=== PATIENT | female | born 1985 | race Caucasian/White ===

== ENCOUNTER 2018-10-14 17:42 | Inpatient (IN) | payer OTHER ==
[2018-10-14 18:39] LABS: RUPTURE OF MEMBRANES PLUS POSITIVE (NEGATIVE)
[2018-10-14] MEDS ORDERED: fentaNYL 100 MCG/2 ML VIAL IVP PRN (18:50)
[2018-10-14] MEDS ORDERED: OXYTOCIN/SODIUM CHLORIDE 500 ML IV PRN (18:50)
[2018-10-14] MEDS ORDERED: ONDANSETRON 4 MG/2 ML VIAL IVP PRN (18:50)
[2018-10-14] MEDS ORDERED: SODIUM CHLORIDE FLUSH 0.9% 10 ML SYRINGE IVP PRN (18:50)
[2018-10-14] MEDS ORDERED: miSOPROStol 200 MCG TABLET PR ONE (18:50)
[2018-10-14] MEDS ORDERED: PENICILLIN G POTASSIUM 5,000,000 UNIT in SODIUM CHLORIDE 0.9% MINIBAG 100 ML IV ONE (19:30)
[2018-10-14 19:55] LABS: BASOPHILS % (AUTO) 0.1 %; EOSINOPHILS # (AUTO) 0.1 10^3/uL (0.0-0.7); HGB - HEMOGLOBIN 13.1 g/dL (12.0-16.0); LYMPHOCYTES # (AUTO) 1.9 10^3/uL (1.5-3.5); LYMPHOCYTES % (AUTO) 16.1 %; MEAN CORPUSCULAR HEMOGLOBIN 32.4 pg (27.0-31.0); MEAN CORPUSCULAR HGB CONC 35.2 g/dL (32.0-36.0); MEAN CORPUSCULAR VOLUME 92.1 fL (81.0-99.0); MEAN PLATELET VOLUME 8.6 fL (7.9-10.8); MONOCYTES # (AUTO) 0.8 10^3/uL (0.0-1.0); MONOCYTES % (AUTO) 6.5 %; NEUTROPHILS # (AUTO) 9.1 10^3/uL (1.5-6.6); NEUTROPHILS % (AUTO) 76.3 %; PLT - PLATELET COUNT 233 10^3/uL (130-450); RED BLOOD COUNT 4.04 10^6/uL (4.20-5.40); WHITE BLOOD COUNT 11.9 x10^3/uL (4.8-10.8)
[2018-10-14] MEDS: CALCIUM CARBONATE CHEW 500 MG TABLET PO SCH (20:00)
[2018-10-14] MEDS: LACTATED RINGERS 1,000 ML IV SCH (20:03)
[2018-10-14] MEDS: OXYTOCIN/SODIUM CHLORIDE 500 ML IV SCH (20:30)
--- NOTE | 2018-10-14 23:06 | HISTORY & PHYSICAL EXAMINATION ---
Admit History - Visit Reason Visit Reason: Membranes rupture - : 1 Parity: 0 Care: positive: [facility] Risk/History: positive: None Complications This : positive: None Smoking Status: Never smoker - Mother's Labs Mother's Blood Type: positive: A Mother's RH: positive: Positive GBS: positive: Group B Strep Positive Rubella Status: positive: Immune - Other Maternal History Other Maternal History: HPI: had wet underwear when she went to urinate at 16:30. Was clear. Has been leaking since. Prior to 16:30 her previous void had been at 14:00. ROS: no VB. No UC. Good FM. No fever. Having some nasal congestion and cough--is recovering from viral URI from last week PMH: recurrent UTI in early , received macrobid suppression until 38w PSH: neg Allergies: NKDA Meds: PNV, tums, colace SH: no t/e/d. 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 Supportive partner is here. 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 Care at [facility]--they are on divert. HALEY: 10/16/18 by 9w US per [employer] ABO Rh: A+, antibody neg STI labs: neg gc/ct, HIV neg, Hep C neg, Hep B neg, Syphilis neg Immunity screen: immune to rubella and varicella Carrier screen: CF results are not clear from chart Genetic screen: normal quad screen UA: normal Pap: result not clear from records. I believe it reads normal pap, +HR HPV, neg 16/18. 1h: 113 CBC: 37 in 06/2018 Anatomy: no anatomy scan in records Flu vax: s/p Tdap: s/p 36w US: EFW 64%ile projected to be 8#6oz at 40w. 10/09/18 SVE /-3/post/medium. Membranes were swept then. O: AVSS Alert, smiling between contractions, NAD Abd soft, nt/nd Fundus nontender EFW 7.5-8.5# Vertex by SVE. 90/-1 NST category 1 [place] not picking up well. One contraction while I was in the room--palpated strong. A/P: [id number] G1 at 39w5d by 9w US with SROM clear around 16:30. --Augmenting with pitocin due to lack of UC on admission; strong UC palpated, stoic patient, will adjust toco and assess UC --GBS + getting PCN prophylaxis --Reassuring wellbeing. Vertex. EFW 7.5-8.5#. No anatomy scan on record but it was done. --Uncomplicated except for recurrent UTI. -- issues: none identified. Rh+, , RI, s/p Tdap and flu vax. --Anticipate . Discussed pain control options and what to expect at delivery. Meds/Allgy - Allergies Allergies/Adverse Reactions: Allergies Allergy/AdvReac Type Severity Reaction Status Date / Time No Known Drug Allergies Allergy Verified 10/14/18 19:24 Physical - Abdominal Exam Vital Signs: Temp Pulse Resp BP Pulse Ox 98.1 F 74 18 122/78 99 10/14/18 17:55 10/14/18 17:55 10/14/18 17:55 10/14/18 17:55 10/14/18 17:55
[2018-10-15] MEDS ORDERED: fent/BUPIV 2 MCG/0.125% 250 ML EP ONE (00:27)
[2018-10-15] MEDS: LACTATED RINGERS 1,000 ML IV SCH ×3 (00:50→14:26)
[2018-10-15] MEDS ORDERED: NALBUPHINE 10 MG/ML AMP IVP PRN (01:15)
[2018-10-15] MEDS ORDERED: ONDANSETRON 4 MG/2 ML VIAL IVP PRN (01:15)
[2018-10-15] MEDS ORDERED: fent/BUPIV 2 MCG/0.125% 250 ML EP PRN (01:15)
[2018-10-15] MEDS ORDERED: diphenhydrAMINE INJ 50 MG/ML VIAL IVP PRN (01:15)
--- NOTE | 2018-10-15 01:17 | ANESTHESIA ---
Pre-Anesthesia VS, & Labs - Diagnosis term labor, IUP - Procedure TONI Vital Signs: Temp Pulse Resp BP Pulse Ox 36.7 C 74 18 122/78 99 10/14/18 17:55 10/14/18 17:55 10/14/18 17:55 10/14/18 17:55 10/14/18 17:55 Height 5 ft 5 in Weight (kg) 97.069 kg - NPO Last Fluid Intake: t/o day/noc Last Food Intake: 1999 - Is Patient ?: Yes - Lab Results Current Lab Results: Laboratory Tests 10/14/18 19:25: Blood Type A POSITIVE, Antibody Screen NEGATIVE 10/14/18 19:25: WBC 11.9 H, RBC 4.04 L, Hgb 13.1, Hct 37.2, MCV 92.1, MCH 32.4 H , MCHC 35.2, RDW 13.0, Plt Count 233, MPV 8.6, Neut # (Auto) 9.1 H, Lymph # (Auto) 1.9, Nelson # (Auto) 0.8, Eos # (Auto) 0.1, Baso # (Auto) 0.0, Absolute Nucleated RBC 0.01, Nucleated RBC % 0.1 Lab results reviewed: Yes Fish Bones: 10/14/18 19:25 Home Medications and Allergies Active Medications Acetaminophen (Tylenol) 650 mg PO Q6H PRN PRN Reason: Pain or Fever Calcium Carbonate/Glycine (Tums) 500 mg PO BID [facility] Last Admin: 10/14/18 20:00 Dose: 500 mg Fentanyl (Fentanyl) 50 mcg IVP Q1H PRN PRN Reason: PAIN Lactated Ringer's (Lr) 1,000 mls @ 100 mls/hr IV .Q10H [facility] Last Admin: 10/14/18 20:03 Dose: 100 mls/hr Oxytocin/Sodium Chloride (Pitocin/Sodium Chloride) 500 mls @ 999 mls/hr IV PRN PRN; Protocol PRN Reason: POST- HEMORR PREVENTION Penicillin G Potassium 2,500, (000 unit/ Sodium Chloride) 100 mls @ 200 mls/hr IV Q4H [facility] Last Admin: 10/15/18 00:00 Dose: 200 mls/hr Oxytocin/Sodium Chloride (Pitocin/Sodium Chloride) 500 mls @ 1 mls/hr IV TITR S CH; Protocol Last Titration: 10/15/18 00:03 Dose: 4 milliunit/min, 4 mls/hr Ondansetron HCl (Zofran Inj) 4 mg IVP Q4HR PRN PRN Reason: Nausea / Vomiting Last Admin: 10/15/18 00:07 Dose: 4 mg Sodium Chloride (Normal Saline Flush 0.9%) 10 ml IVP 0100,0900,1700 BJ Sodium Chloride (Normal Saline Flush 0.9%) 10 ml IVP PRN PRN PRN Reason: NEEDED PER PROVIDER ORDERS Allergies/Adverse Reactions: Allergies Allergy/AdvReac Type Severity Reaction Status Date / Time No Known Drug Allergies Allergy Verified 10/14/18 19:24 Anes History & Medical History - Anesthetic History Anesthesia Complications: reports: No previous complications Family history of Anesthesia Complications: Denies Family history of Malignant Hyperthermia: Denies - Medical History Smoking Status: Never smoker - Obstetrical History : 1 Parity: 0 Events: positive: None Complications: positive: None Exam General: Alert, Oriented x3, Cooperative Dental: WNL Mouth Openin Fingerbreadth Neck Mobility: Normal Mallampati classification: I Thyromental Distance: less than 4 cm Respiratory: No respiratory distress Cardiovascular: Regular rate Neurological: Normal speech Mental/Cognitive Status: Alert/Oriented X3 Cognitive Status: Within normal limits Plan Anesthesia Type: Epidural Consent for Procedure(s) Verified and Reviewed: Yes Code Status: Attempt Resuscitation ASA classification: 2-Mild systemic disease Is this case an emergency?: No
[2018-10-15] MEDS: PENICILLIN G POTASSIUM 2,500,000 UNIT in SODIUM CHLORIDE 0.9% 100ML 100 ML IV SCH ×6 (05:00→17:38)
[2018-10-15] MEDS: SODIUM CHLORIDE FLUSH 0.9% 10 ML SYRINGE IVP SCH ×3 (07:24→15:45)
--- NOTE | 2018-10-15 08:23 | PROVIDER PROGRESS NOTE ---
Labor Progress Note - Uterine Monitoring Uterine Monitoring Mode: positive: External toco Contraction Frequency (min/apart): 2 Uterine Resting Tone: positive: Soft - Monitoring Monitor Mode: positive: External ultrasound Heart Rate Variability: positive: Moderate (6-25 bmp) Accelerations: positive: Present, 15x15 Decelerations: positive: None Strip Review: positive: Category I - Vaginal Exam Dilation (in cm): 8-9 Effacement (%): 90 Station: -2 - Labor Progress Note Labor Progress Note/Additional Text: S: comfortable with epidural O: AVSS, NAD A/P: 33yo G1 at 39w6d with active labor, SROM clear since 16:30 yesterday. --RN reported SVE of ant lip--I get a SVE of 9cm during a UC and 8cm when not. --Not on pitocin anymore, UC q2min. --Plan to palpate UC more consistently. If moderate then start pitocin. Otherwise recheck SVE in 1h and if unchanged then will place IUPC --GBS + on PCN -- well being reassuring
[2018-10-15] MEDS ORDERED: LIDOCAINE-MPF 2% 5 ML VIAL IM ONE (12:00)
--- NOTE | 2018-10-15 12:33 | PROVIDER PROGRESS NOTE ---
Labor Progress Note - Uterine Monitoring Uterine Monitoring Mode: positive: IUPC (Strong. Didn't figure out [place] u nits) Contraction Frequency (min/apart): 2-4 Contraction Intensity: positive: Strong Uterine Resting Tone: positive: Soft - Monitoring Monitor Mode: positive: External ultrasound Heart Rate Baseline: 110 Heart Rate Variability: positive: Moderate (6-25 bmp) Accelerations: positive: Present, 15x15 Strip Review: positive: Category I - Vaginal Exam Dilation (in cm): 10 Effacement (%): 100 Station: 2 - Labor Progress Note Labor Progress Note/Additional Text: Anticipate delivery.
[2018-10-15] MEDS ORDERED: LIDOCAINE-MPF 1% 30 ML VIAL ONE (12:53)
[2018-10-15] MEDS ORDERED: METHYLERGONOVINE 0.2 MG/ML AMP ONE (13:00)
[2018-10-15] MEDS ORDERED: oxyCODONE 5 MG TABLET PO PRN (13:30)
[2018-10-15] MEDS ORDERED: HYDROCORTISONE 1% CREAM 28 GM TUBE PR PRN (13:30)
[2018-10-15] MEDS ORDERED: diphenhydrAMINE 25 MG CAPSULE PO PRN (13:30)
[2018-10-15] MEDS ORDERED: WITCH HAZEL/GLYCERIN 1 EACH MED..PAD TOP PRN (13:30)
--- NOTE | 2018-10-15 13:39 | DELIVERY NOTE ---
Delivery Note - Labor Labor: positive: Spontaneous - Delivery Method Delivery Method: positive: Spontaneous vaginal delivery - Presentation Presentation: positive: Vertex, OA - occiput anterior - Nuchal Cord Nuchal Cord: positive: None - Anesthetic Anesthetic Type: - Amniotic Fluid Description Amniotic Fluid Description: positive: Clear - Episiotomy Type Episiotomy Type: positive: None - Laceration Laceration: positive: 1st degree, Labial, Other (clitoral) - Suture Suture Type: positive: Vicryl Suture Size: positive: 3-0 - Delivery Outcome Delivery Outcome: positive: Livebirth (Male apgars 7/9) - [place] : positive: Suctioned, Bulb syringe, Stimulated, Other (clitoral) sex: positive: Male - Cord Cord: positive: 3 vessels - Placenta Placenta: positive: Intact, Spontaneous - Estimated Blood Loss Estimated Blood Loss (in cc): 600 - Post Delivery Events Post Delivery Events: positive: No post delivery events - Delivery Comments (Free Text/Narrative) Delivery Comments (Free Text/Narrative): Contractions were spacing out and insufficient. IUPC placed and pit brought to 5. Excellent pattern. Exam st 1222 showed Head C/C/+2. Pt Pushed and head brought to . Delivery setup and at 1242 Live male 7lb 12oz delivered OA which rotated to DILMA. Nucal cord noted and baby delivered thru the cord. Possible shoulder dystocia anticipated and so Bhakta procedure initiated with easy delivery of the shoulders. Placenta followed at 1252. inspected adn noted to be complete. Left labial laceration noted and repaired with 3-0 vicril. clitoral laceration repared with 3-0 vicril. both mother and baby tolerated delivery well.
[2018-10-15] MEDS: CALCIUM CARBONATE CHEW 500 MG TABLET PO SCH (13:56)
[2018-10-15] MEDS: IBUPROFEN 600 MG TABLET PO SCH ×2 (14:21→20:12)
[2018-10-15] MEDS: SIMETHICONE CHEW 80 MG TABLET PO SCH (16:29)
[2018-10-15] MEDS: DOCUSATE SODIUM 100 MG CAPSULE PO SCH (20:12)
[2018-10-15] MEDS: ACETAMINOPHEN 325 MG TABLET PO PRN (22:52)
[2018-10-16] MEDS: IBUPROFEN 600 MG TABLET PO SCH ×4 (02:14→20:31)
[2018-10-16 05:56] LABS: BASOPHILS % (AUTO) 0.1 %; EOSINOPHILS # (AUTO) 0.2 10^3/uL (0.0-0.7); EOSINOPHILS % (AUTO) 1.7 %; HGB - HEMOGLOBIN 9.4 g/dL (12.0-16.0); LYMPHOCYTES % (AUTO) 14.8 %; MEAN CORPUSCULAR HEMOGLOBIN 31.9 pg (27.0-31.0); MEAN CORPUSCULAR HGB CONC 33.5 g/dL (32.0-36.0); MEAN CORPUSCULAR VOLUME 95.2 fL (81.0-99.0); MEAN PLATELET VOLUME 8.2 fL (7.9-10.8); MONOCYTES # (AUTO) 0.9 10^3/uL (0.0-1.0); MONOCYTES % (AUTO) 6.6 %; NEUTROPHILS # (AUTO) 10.4 10^3/uL (1.5-6.6); NEUTROPHILS % (AUTO) 76.8 %; PLT - PLATELET COUNT 172 10^3/uL (130-450); RED BLOOD COUNT 2.95 10^6/uL (4.20-5.40); RED CELL DISTRIBUTION WIDTH 13.3 % (12.0-15.0); WHITE BLOOD COUNT 13.5 x10^3/uL (4.8-10.8)
--- NOTE | 2018-10-16 07:47 | PROVIDER PROGRESS NOTE ---
Subjective - Prog Note Date Prog Note Date: 10/16/18 Prog Note Time: 07:45 - Subjective Pt reports feeling: Improved (Pain 07/18. breast feeding) Objective - Vital Signs/Intake & Output Reviewed Vital Signs: Yes Vital Signs: Vital Signs x48h Temp Pulse Resp BP Pulse Ox 10/16/18 07:14 36.7 C 69 16 127/77 95 10/16/18 04:00 36.8 C 66 16 105/68 98 10/16/18 00:38 36.7 C 70 16 113/70 99 Intake & Output: Intake & Output 10/13/18 10/14/18 10/15/18 10/16/18 23:59 23:59 23:59 23:59 Intake Total 330.614 2146.950 Output Total 2650 Balance 982.837 6680.950 - Objective General Appearance: positive: No acute distress Respiratory: positive: Chest non-tender, No respiratory distress, Breath sounds nml Cardiovascular: positive: Regular rate & rhythm, No murmur, No gallop Abdomen: positive: Non-tender, No organomegaly, Nml bowel sounds Extremities: negative: Calf tenderness, Richard's sign/cords - Lab Results Fish Bones: 10/16/18 05:35 Other Labs: Lab Results x24hrs 10/16/18 Range/Units 05:35 WBC 13.5 H (4.8-10.8) x10^3/uL RBC 2.95 L (4.20-5.40) 10^6/uL Hgb 9.4 L (12.0-16.0) g/dL Hct 28.1 L (37.0-47.0) % MCV 95.2 (81.0-99.0) fL MCH 31.9 H (27.0-31.0) pg MCHC 33.5 (32.0-36.0) g/dL RDW 13.3 (12.0-15.0) % Plt Count 172 (130-450) 10^3/uL MPV 8.2 (7.9-10.8) fL Neut # (Auto) 10.4 H (1.5-6.6) 10^3/uL Lymph # (Auto) 2.0 (1.5-3.5) 10^3/uL [place] # (Auto) 0.9 (0.0-1.0) 10^3/uL Eos # (Auto) 0.2 (0.0-0.7) 10^3/uL Baso # (Auto) 0.0 (0.0-0.1) 10^3/uL Absolute Nucleated RBC 0.00 x10^3/uL Nucleated RBC % 0.0 /100WBC Assessment/Plan - Problem List (1) (spontaneous vaginal delivery) Impression: Progressing well. watch bleeding
[2018-10-16] MEDS: CALCIUM CARBONATE CHEW 500 MG TABLET PO SCH ×2 (07:55→10:25)
[2018-10-16] MEDS: OXYTOCIN/SODIUM CHLORIDE 500 ML IV SCH (07:55)
[2018-10-16] MEDS: SODIUM CHLORIDE FLUSH 0.9% 10 ML SYRINGE IVP SCH ×3 (07:55→18:23)
[2018-10-16] MEDS: LACTATED RINGERS 1,000 ML IV SCH ×3 (07:55→10:25)
[2018-10-16] MEDS: SIMETHICONE CHEW 80 MG TABLET PO SCH ×4 (07:56→20:31)
[2018-10-16] MEDS: DOCUSATE SODIUM 100 MG CAPSULE PO SCH ×2 (08:04→20:31)
[2018-10-17] MEDS: CALCIUM CARBONATE CHEW 500 MG TABLET PO SCH (04:52)
[2018-10-17] MEDS: IBUPROFEN 600 MG TABLET PO SCH ×2 (04:52→10:34)
[2018-10-17 08:29] VITALS: BP 110/76
--- NOTE | 2018-10-17 08:38 | PROVIDER PROGRESS NOTE ---
Subjective - Prog Note Date Prog Note Date: 10/17/18 Prog Note Time: 08:35 - Subjective Pt reports feeling: Improved (Pain 0/10. milk comming bleeing scant.) Objective - Vital Signs/Intake & Output Reviewed Vital Signs: Yes Vital Signs: Vital Signs x48h Temp Pulse Resp BP Pulse Ox 10/17/18 08:00 36.9 C 68 14 110/76 99 10/17/18 04:51 37.4 C 75 16 118/84 H 98 Intake & Output: Intake & Output 10/14/18 10/15/18 10/16/18 10/17/18 23:59 23:59 23:59 23:59 Intake Total 249.644 9186.950 Output Total 2650 Balance 179.998 9021.950 - Objective General Appearance: positive: No acute distress, Alert Abdomen: positive: Non-tender, No distention, Mass (U-3) - Lab Results Fish Bones: 10/16/18 05:35 Other Labs: Lab Results x24hrs 10/16/18 Range/Units 05:35 Blood Type Recheck A POSITIVE Assessment/Plan - Problem List (1) (spontaneous vaginal delivery) Impression: clitoral laceration left labial laceration. Anemia. Send home reviewed breast feeding contraception. wants nexplanon. RTC 1 week here than followup at [facility]. Discharge medication Motrin Colace.
[2018-10-17] MEDS: DOCUSATE SODIUM 100 MG CAPSULE PO SCH (08:40)
[2018-10-17] MEDS: SIMETHICONE CHEW 80 MG TABLET PO SCH (08:41)
--- NOTE | 2018-10-17 08:44 | Discharge Plan ---
Discharge Plan Disposition: 01 Home, Self Care Condition: Good Shower Restrictions: No Driving Restrictions: No Weight Bearing: Full Weight No Smoking: If you smoke, Please STOP! Call for help. Follow-up with: SABA FREDERICK [Primary Care Provider] -
[2018-10-17] MEDS: ACETAMINOPHEN 325 MG TABLET PO PRN (10:33)
--- NOTE | 2018-10-17 10:56 | Labor Flowsheet ---
Labor Flowsheet Datetime Report Generated by CPN: 10/17/2018 10:55 Datetime: 10/17/2018 08:05 VITAL SIGNS NBP Sys/Maye/Mean (mmHg): 110 : 76 : 83 Pulse: 70 LaborFlag: Labor Datetime: 10/16/2018 20:29 SpO2 (%): 100 Datetime: 10/15/2018 12:33 COMMUNICATION Communication: Provider at Bedside Provider Notified (Name): Giem Datetime: 10/15/2018 12:30 UTERINE ACTIVITY Monitor Mode: Internal Frequency (min): 1.5-2.5 Duration (sec): 60-80 Pattern: Normal: <= 5 Contractions in 10 Minutes Resting Tone IUP (mmHg): 20-30 Intensity IUP (mmHg): 80-100 ASSESSMENT A Monitor Mode: External US FHR Baseline Rate : 115 FHR Baseline Changes: No Baseline Change Variability: Moderate 6-25 bpm Accelerations: 15X15 Decelerations: None Category: Category I Datetime: 10/15/2018 12:22 VAGINAL EXAM Dilatation (cm): 10.0 Station: 2 Exam by: Giem Datetime: 10/15/2018 11:58 Stage of : Labor Datetime: 10/15/2018 11:54 Respirations: 16 Temperature (C): 36.4 Anesthesia Level Check: T9 Datetime: 10/15/2018 11:52 Monitor Interventions for FHR: Ultrasound Adjusted Datetime: 10/15/2018 11:51 PATIENT CARE Patient Position/Activity: Right Lateral Datetime: 10/15/2018 10:59 MEDICATIONS Pitocin (milliunits): Increased to @ 5 Datetime: 10/15/2018 10:44 Epidural Procedure Other: Redose Datetime: 10/15/2018 10:43 Anesthesia Comments: Aube @BS Datetime: 10/15/2018 10:30 Actions for Decelerations: Side to Side Datetime: 10/15/2018 10:04 Contraction Comments: IUPC zeroed Datetime: 10/15/2018 10:00 Moran Units (mmHg): 210 Datetime: 10/15/2018 09:50 Patient Care Comments: with peanut ball Datetime: 10/15/2018 09:00 Quality: Strong Resting Tone (Palpate): Relaxed Datetime: 10/15/2018 08:56 Monitor Interventions for UA: IUPC Inserted Datetime: 10/15/2018 08:33 Communication Comments: Providers @BS to introduce Giem to pt. Datetime: 10/15/2018 06:50 Vaginal Bleeding: None Cervix, Position: Anterior Vaginal Exam Comments: anterior lip Datetime: 10/15/2018 05:45 Comments: variables to 100's with return to baseline Datetime: 10/15/2018 05:15 Effacement (%): 100 Medication Comments: pit off due to decreased variability, frequency of contractions. Datetime: 10/15/2018 05:12 Hygiene: Kassi Care; Underpad Changed; Peripad Changed; Gown Changed Datetime: 10/15/2018 04:45 Temperature Route: Oral Datetime: 10/15/2018 02:43 Cervix, Consistency: Soft Datetime: 10/15/2018 02:34 I/O Interventions: Allred Cath Inserted Datetime: 10/15/2018 00:48 Epidural Procedure: Cath Placed Datetime: 10/15/2018 00:26 PROCEDURE TIME OUT Procedure Verify: Correct Patient Identity; Accurate Procedure Consent Form; Agreement on Procedure to be Done; Correct Patient Position ANESTHESIA Anesthesia Plans: Epidural Epidural Positioning: Sitting Datetime: 10/15/2018 00:07 Antiemetics/Antacids: Zofran (mg) @ (Annotations: 4) Datetime: 10/14/2018 23:30 Pitocin Checklist: At Least 1 Acceleration of 15 bpm x 15 Seconds in 30 Minutes or Adequate Variabi lity; No More than 1 Late Deceleration Occurred in Past 30 Minutes; No More than 2 Variable Decelerat ions > 60 Seconds in Duration and decreasing >60 bpm in 30 minutes; Uterus Palpates Soft between Cont ractions Datetime: 10/14/2018 20:04 Antibiotics: Start Antibiotics; Penicillin IV (Units) @ (Annotations: 5 million u)
--- NOTE | 2018-10-23 15:21 | DISCHARGE SUMMARY ---
Physician: Naveen Robles MD DATE OF ADMISSION: 10/14/2018 DATE OF DISCHARGE: 10/17/2018 ADMITTING DIAGNOSES 1. A 33-year-old G1, P0, 39.4 weeks. 2. Spontaneous rupture of membranes. 3. Group B strep positive. DISCHARGE DIAGNOSES 1. A 33-year-old G1, P0, 39.4 weeks. 2. Spontaneous rupture of membranes. 3. Group B strep positive. 4. Left labial laceration, as well as clitoral laceration. PROCEDURES 1. Pitocin augmentation. 2. Group B strep prophylaxis. 3. Epidural. 4. Intrauterine pressure catheter. 5. Spontaneous vaginal delivery. 6. Repair of clitoral, as well as left labial laceration. PRESENTING HISTORY: Patient is a 33-year-old G1, P0, 39.5 weeks by 9-week ultrasound, who received her care from [facility]. Her care was significant in that she had a UTI. The remainder of her care was unremarkable. She was noted to be group B strep positive. She was also noted to be A positive. LABORATORIES: Predelivery white count was 11.9, hemoglobin 13.1. Hematocrit was 34.7. Platelets were 233. Postdelivery white count increased to 13.5, hemoglobin fell to 9.4, hematocrit 28.1, and platelets were 172. HOSPITAL COURSE: The patient was admitted, and because of lack of labor and/or spontaneous rupture of membranes Pitocin was initiated. She developed some tachysystoles, so her Pitocin was turned off and her contractions waned dramatically. For this reason, an IUPC was placed, and she was reinitiated on Pitocin. She was rechecked at 12:22; at which time she was noted to be complete, complete, +2. She brought the head down quite easily with pushing and at 12:42 she delivered a live male infant weighing 7 pounds 12 ounces at occiput anterior. A nuchal cord was noted, and because of its tightness, it was decided to deliver the baby through the cord. There was some hesitancy at delivering of the shoulders, so Mayuri maneuvers were initiated, and the shoulders delivered quite easily after that. Her placenta followed at 12:52, was inspected, and noted to be intact. She was noted to have a left labial laceration, as well as a clitoral laceration. These were both repaired with 3-0 Vicryl. Both mother and tolerated delivery well. Her course was unremarkable. Her diet was advanced. She utilized local pain measures. She was discharged to home on 10/17/2018, with instructions to follow up in 1 week. DISCHARGE MEDICATIONS 1. Motrin. 2. Colace. TD: 10/23/2018 14:36 [facility]
== END 2018-10-17 10:40 | disposition home or self-care (01) | DRG 768 ==
LOC: WFO 17:42 → FBP 17:44 → WFO 18:49 → FBP 18:50
PROVIDERS: ADMIT Obstetrics & Gynecology; ATTEND Obstetrics & Gynecology
PROC: 10E0XZZ Delivery of Products of Conception, External Approach (ICD-10-PCS; principal; 2018-10-15)
PROC: 0UQJXZZ Repair Clitoris, External Approach (ICD-10-PCS; 2018-10-15)
PROC: 0HQ9XZZ Repair Perineum Skin, External Approach (ICD-10-PCS; 2018-10-15)
DX: O99.820 Streptococcus B carrier state complicating pregnancy (principal); Z37.0 Single live birth; O66.0 Obstructed labor due to shoulder dystocia; O69.1XX0 Labor and delivery complicated by cord around neck, with compression, not applicable or unspecified; O70.0 First degree perineal laceration during delivery; O71.89 Other specified obstetric trauma; Z3A.39 39 weeks gestation of pregnancy
CPT/HCPCS: 36415; 84112; 85025; 86850; 86900; 86901; 99213; A9270; J7120

== ENCOUNTER 2019-03-28 12:08 | Outpatient (CLI) | payer OTHER ==
[2019-03-28] MEDS ORDERED: BUFFERED LIDOCAINE 10 ML SYRINGE ONE (12:27)
[2019-03-28] MEDS ORDERED: IOTHALAMATE MEGLUMINE 50 ML VIAL ONE (12:28)
[2019-03-28] MEDS ORDERED: GADOPENTETATE DIMEGLUMINE 5 ML VIAL IVP ONE ×2 (12:28→13:11)
[2019-03-28] MEDS ORDERED: BUFFERED LIDOCAINE 10 ML SYRINGE IU ONE (13:11)
[2019-03-28] MEDS ORDERED: IOTHALAMATE MEGLUMINE 50 ML VIAL IVP ONE (13:11)
--- NOTE | 2019-03-28 14:50 | XRAY Report ---
Reason: RT WRIST PAIN Procedure Date: 03/28/2019 Accession Number: [id number] / [id number] Procedure: FL - Arthrogram Needle Placement CPT Code: FULL RESULT: EXAM: RIGHT Wrist Arthrographic Injection with Fluoroscopic Guidance EXAM DATE: 03/28/2019 01:15 PM. CLINICAL HISTORY: RT WRIST PAIN. COMPARISON: ARTHROGRAM WRIST RT 03/28/2019 1:25 PM. TECHNIQUE: The risks, benefits, and alternatives of the procedure were discussed with the patient. All questions were answered. Written and verbal consent were obtained. The right radiocarpal joint was marked under fluoroscopy and prepped and draped in a sterile manner. Local anesthesia was performed with 1% lidocaine. A 25-gauge needle was then inserted into the radiocarpal joint. 3 mL of a solution containing 25% 1% lidocaine, 25% iodinated contrast, and a 1:200 dilution of gadolinium contrast in sterile saline was then injected. The needle was removed without immediate complication. Other: None. Fluoroscopy Time: 1 minute 12 seconds. Number of Images: 4. FINDINGS: Bones and joints: No fracture or subluxation. Injection: Fluoroscopic images demonstrate needle placement and contrast in the right radiocarpal joint. No contrast extravasation outside of the radiocarpal joint. IMPRESSION: Successful fluoroscopically guided arthrographic injection of the right wrist. RADIA
--- NOTE | 2019-03-29 09:26 | MRI Report ---
Reason: RT WRIST PAIN Procedure Date: 03/28/2019 Accession Number: [id number] / [id number] Procedure: MRI - Arthrogram Wrist RT CPT Code: FULL RESULT: EXAM: RIGHT WRIST MRI ARTHROGRAM WITH CONTRAST EXAM DATE: 03/28/2019 01:50 PM. CLINICAL HISTORY: Right wrist pain. COMPARISON: None. TECHNIQUE: Multiplanar, multisequence T1-weighted and fluid-sensitive sequences of the wrist after an arthrographic injection of dilute gadolinium, dictated under a separate exam. Other: None. FINDINGS: Bones: No fractures or subluxations. No marrow edema. No bone lesions. Cartilage: The articular cartilage is unremarkable. The triangular fibrocartilage has no full-thickness tears in the proximal to distal direction. However, there does appear to be transverse tearing through the cartilaginous structure as visualized on series 901, image 31. Ligaments: The scapholunate and lunotriquetral ligaments are intact. The visualized other intrinsic, extrinsic and collateral ligaments are unremarkable. Tendons: Multifocal longitudinal split tearing is demonstrated of the abductor pollicis longus and there is some fluid within its tendon sheath (series 501, image 15). The other visualized flexor and extensor tendons are unremarkable. Musculature: No edema or fatty atrophy. Other: The contents of the carpal tunnel, including the median nerve, are unremarkable. Guyons canal is unremarkable. No ganglion cysts. Note that there is a large amount of extravasation of contrast out of the radiocarpal joint space volarly and dorsally and this is likely due to over distention. Trace fluid is in the distal radioulnar joint. IMPRESSION: 1. Transverse tearing of the triangular fibrocartilage. 2. Multifocal longitudinal tearing of the abductor pollicis longus tendon with tenosynovitis. RADIA
== END 2019-03-28 12:09 | disposition home or self-care (01) ==
LOC: DI 12:08
PROVIDERS: ATTEND Family Medicine
DX: S63.591A Other specified sprain of right wrist, initial encounter (principal); S66.811A Strain of other specified muscles, fascia and tendons at wrist and hand level, right hand, initial encounter; M65.9 Synovitis and tenosynovitis, unspecified
CPT/HCPCS: 25246; 73222; 77002; Q9961

== ENCOUNTER 2019-06-17 20:22 | Emergency (ER) | payer OTHER ==
--- NOTE | 2019-06-17 21:48 | ED Physician Documentation ---
History of Present Illness - Stated complaint Stated Complaint: FEVER,COUGH - Chief complaint Chief Complaint: Resp - Additonal information Additional information: This is a 33F who presents with cough, nasal congestion, and mild bodyaches with low grade fever for several days. No vomiting, dysuria, or abdominal pain. She has taken some sudafed and tylenol, which help her symptoms for a while. No chest pain or shortness of breath. Review of Systems Constitutional: reports: Fever Nose: reports: Rhinorrhea / runny nose Respiratory: reports: Cough PD PAST MEDICAL HISTORY - Past Medical History Past Medical History: No - Past Surgical History Past Surgical History: No - Present Medications Home Medications: Ambulatory Orders Medication Instructions Recorded Confirmed No Known Home Medications 06/17/19 06/17/19 - Allergies Allergies/Adverse Reactions: Allergies Allergy/AdvReac Type Severity Reaction Status Date / Time No Known Drug Allergies Allergy Verified 06/17/19 20:40 - Living Situation Living Arrangement: reports: At home - Social History Does the pt smoke?: No Smoking Status: Never smoker Does the pt drink ETOH?: Yes PD ED PE NORMAL - Vitals Vital signs reviewed: Yes - General General: Alert and oriented X 3, No acute distress - HEENT HEENT: PERRL, Ears normal, Moist mucous membranes, Pharynx benign - Neck Neck: Supple, no meningeal sign - Cardiac Cardiac: RRR - Respiratory Respiratory: Clear bilaterally - Abdomen Abdomen: Soft, Non tender, Non distended - Derm Derm: Warm and dry - Extremities Extremities: No deformity - Neuro Neuro: Alert and oriented X 3 - Psych Psych: Normal mood, Normal affect Results - Vitals Vitals: Oxygen O2 Source Room air PD MEDICAL DECISION MAKING - ED course ED course: Pt is very well appearing with unremarkable vital signs. Symptoms are consistent with viral URI, she has no signs of otitis media, PNA, UTI, sinusitis, or other bacterial infection at this time. She may have flu given her generalized mild body aches, but she is outside the window where tamiflu would be most helpful, and she is healthy and well-appearing so would have minimal to no benefit from oseltamivir. I discussed supportive care and PCP follow up, and return precuations. Pt agrees and was discharged home. Departure - Departure Disposition: 01 Home, Self Care Clinical Impression: URI (upper respiratory infection) Qualifiers: URI type: unspecified URI Qualified Code(s): J06.9 - Acute upper respiratory infection, unspecified Condition: Good Instructions: ED Viral Syndrome Follow-Up: MARGY SUTTON [Primary Care Provider] - (As needed with any persistent symptoms) Discharge Date/Time: 06/17/19 23:12
[2019-06-17] MEDS ORDERED: CHERRY SYRUP 10 ML UDC PO ONE (22:18)
[2019-06-17] MEDS ORDERED: DEXAMETHASONE 10 MG/ML VIAL PO STA (22:18)
[2019-06-17 23:13] VITALS: BP 120/68
== END 2019-06-17 23:12 | disposition home or self-care (01) ==
LOC: ED 20:22
DX: J06.9 Acute upper respiratory infection, unspecified (principal)
CPT/HCPCS: 99282; A9270